=== PATIENT | male | born 1965 | race Two or more races ===

== ENCOUNTER 2023-03-12 12:48 | Emergency (ER) | payer OTHER ==
[2023-03-12 13:00] VITALS: BP 118/67
[2023-03-12 13:30] VITALS: BP 112/74
[2023-03-12 14:01] VITALS: BP 124/66
[2023-03-12] MEDS ORDERED: NAPROXEN500 MG PO (14:18)
[2023-03-12] MEDS ORDERED: MEDDOSEPAK PO (14:18)
[2023-03-12 14:31] VITALS: BP 132/86
[2023-03-12 15:00] VITALS: BP 125/86
[2023-03-12 15:31] VITALS: BP 132/86
== END 2023-03-12 15:40 | disposition home or self-care (01) | DRG 556 ==
LOC: ED 12:48
DX: M25.562 Pain in left knee (principal)